=== PATIENT | male | born 1955 | race Caucasian/White ===

== ENCOUNTER 2017-04-17 18:01 | Emergency (ER) | payer OTHER ==
[~2017-04-17] VITALS: Ht 175.3 cm; Wt 106.6 kg
[~2017-04-17 18:01] MED LIST: CARDIZEM90 MG PO; COUMADIN3 MG PO; DILT-XR180 MG PO; DILTIAZEM ER90 MG PO; DILTIAZEM HCL90 MG PO; HYDROCHLOROTHIA25 MG PO; LISINOPRIL20 MG PO; LOVENOX150 MG SUB-Q; POTASSIUM CHLO20 ME1 PO; WARFARIN SODIUM5 MG PO
[2017-04-17] MEDS ORDERED: TOPROL XL50 MG PO (18:25)
[2017-04-17] MEDS ORDERED: NORVASC10 MG PO (18:26)
[2017-04-17] MEDS ORDERED: CLINDAMYCIN HC300 MG PO (20:16)
[2017-04-17] MEDS ORDERED: NORCO 5-325 TA1 EACH PO (20:16)
== END 2017-04-17 20:34 | disposition home or self-care (01) ==
LOC: ED 18:01
DX: K08.89 Other specified disorders of teeth and supporting structures (principal); I10 Essential (primary) hypertension; F17.200 Nicotine dependence, unspecified, uncomplicated; Z86.711 Personal history of pulmonary embolism; Z88.5 Allergy status to narcotic agent; Z79.01 Long term (current) use of anticoagulants; Z79.899 Other long term (current) drug therapy
CPT/HCPCS: 99283

== ENCOUNTER 2017-07-29 18:50 | Emergency (ER) | payer OTHER ==
[~2017-07-29] VITALS: Ht 175.3 cm; Wt 106.6 kg
[~2017-07-29 18:50] MED LIST changes: +CLINDAMYCIN HC300 MG PO; +NORCO 5-325 TA1 EACH PO; +NORVASC10 MG PO; +TOPROL XL50 MG PO
[2017-07-29] MEDS ORDERED: NORCO 5-325 TA1 EACH PO (22:14)
== END 2017-07-29 22:31 | disposition home or self-care (01) ==
LOC: ED 18:50
DX: R51 Headache (principal); M54.2 Cervicalgia; I10 Essential (primary) hypertension; Z86.711 Personal history of pulmonary embolism; Z87.891 Personal history of nicotine dependence; Z98.890 Other specified postprocedural states; Z88.5 Allergy status to narcotic agent; Z79.899 Other long term (current) drug therapy; Z79.01 Long term (current) use of anticoagulants
CPT/HCPCS: 70450; 72125; 80053; 85025; 85610; 85730; 96374; 96375; 99284; J1170; J2405

== ENCOUNTER 2024-07-05 18:07 | Emergency (ER) | payer BC ==
[~2024-07-05] VITALS: Ht 175.3 cm; Wt 112.5 kg
[~2024-07-05 18:07] MED LIST changes: +AMLODIPINE BESY10 MG PO; +ATORVASTATIN CA10 MG PO; +AZULFIDINE500 MG PO; -COUMADIN3 MG PO; +HYDROCHLOROTH12.5 MG PO; +HYDROCODON-ACE1 EA10 PO; +K-TAB ER20 MEQ PO; +LISINOPRIL40 MG PO; +METOPROLOL SUCC50 MG PO; +METOPROLOL TART50 MG PO; +POTASSIUM CHLO10 ME1 PO; +TAMSULOSIN HCL0.4 MG PO; +VENTOLIN HFA18 GM INH; +VITAMIN D325 MCG PO; +WARFARIN SODIUM3 MG PO; +ZINC50 M1 PO
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
[2024-07-05 18:50] LABS: BILIRUBIN, URINE NEGATIVE (negative); BLOOD/HGB, URINE NEGATIVE (Negative); KETONE, URINE NEGATIVE (Negative); LEUK ESTERASE, URINE NEGATIVE (negative); NITRITE, URINE NEGATIVE (negative); PH, URINE 6.5 (5-7)
[2024-07-05 18:57] LABS: BACTERIA, URINE NONE SEEN /hpf (negative); CASTS, URINE NONE SEEN \\lpf; CRYSTALS, URINE NONE SEEN (0-1+); EPITHELIAL CELLS, URINE NONE SEEN /lpf (0-1+); RED BLOOD CELLS, URINE 0-1 /hpf (0-5); WHITE BLOOD CELLS, URINE 0-1 /HPF (0-5)
[2024-07-05 18:58] LABS: COLLECTION TYPE, URINE CLEAN CATCH; REFLEX CULTURE, URINE No (No)
[2024-07-05 19:53] LABS: BASOPHILS 0.7 % (0-2); EOSINOPHILS 3.8 % (0-6); HEMATOCRIT 43.7 % (35.0-50.0); HEMOGLOBIN 15.1 g/dL (12.0-18.0); LYMPHOCYTES 26.5 % (24-44); MCH 28.6 (27-36); MCHC 34.5 g/dl (30-36); MCV 82.8 fl (81-99); MONOCYTES 9.3 % (0-12); NEUTROPHILS 59.7 % (39-80); PLATELET COUNT 188 K/uL (140-440); RBC 5.27 M/ul (4.3-5.7); RDW 14.9 (10.5-15.0)
[2024-07-05] MEDS ORDERED: INSULIN LISPRO 100 UNIT/ML ML SUB-Q ONE (20:00)
[2024-07-05 20:06] LABS: PH, VENOUS 7.444 (7.31-7.41)
[2024-07-05 20:27] LABS: INR 2.31 (0.80-1.30)
[2024-07-05 20:29] LABS: ALBUMIN 3.1 g/dL (3.4-5.0); ALBUMIN/GLOBULIN RATIO 0.94 (1.1-2.4); ANION GAP 13.5 (7-21); BILIRUBIN, TOTAL 0.4 ng/dL (0.2-1.0); BUN/CREATININE RATIO 17.24 (6.0-28.6); CALCIUM 8.3 mg/dL (8.5-10.1); CREATININE, SERUM 1.16 mg/dL (0.70-1.30); POTASSIUM 3.5 mmol/L (3.5-5.1); PROTEIN, TOTAL 6.4 g/dL (6.4-8.2)
[2024-07-05 21:36] VITALS: BP 156/91
== END 2024-07-05 21:45 | disposition home or self-care (01) ==
LOC: ED 18:07
PROVIDERS: Emergency Medicine; Family Medicine
DX: R73.9 Hyperglycemia, unspecified (principal); I10 Essential (primary) hypertension; Z87.891 Personal history of nicotine dependence; Z88.5 Allergy status to narcotic agent; Z79.899 Other long term (current) drug therapy; Z79.01 Long term (current) use of anticoagulants
CPT/HCPCS: 36415; 80053; 81001; 82803; 85025; 85610; 99284; J1815